=== PATIENT | female | born 1930 | race Caucasian/White ===

== ENCOUNTER → 2016-04-20 | Outpatient (CLI) | payer MEDICARE, BC ==
--- NOTE | 2016-04-21 09:12 | USB ---
Reason for exam: follow-up at short interval from prior study. History: Patient is postmenopausal and has history of breast cancer at age 46. US discontinued breast asp RT of the right breast, October 16, 2015. Mastectomy of the left breast, 1975. Physical Findings: Nurse did not find any significant physical abnormalities on exam. US Breast RT Right breast ultrasound including all four quadrants, the retroareolar region and axilla demonstrates dilated ducts at the post areolar position and a 5 x 4 x 9mm mixed, hypoechoic, vacular lesion at 8 o'clock, 5.9 cm from nipple, this was not seen previously. Biopsy is recommended. These results were verbally communicated with the patient and result sheet given to the patient on 04/20/16. ASSESSMENT: Suspicious, BI-RAD 4 RECOMMENDATION: Surgical consultation and ultrasound core biopsy of the right breast. Called with mammographic findings and has scheduled an appointment for the patient for 04/21/16 at 11:[address] Polanco. PRELIMINARY REPORT CALLED AND FAXED TO DR. POLANCO ON 04/21/16 AT 1000/TMP.
== END | disposition home or self-care (01) ==
LOC: RADUSWWP 14:28
PROVIDERS: ATTEND Family Medicine
DX: N63 Unspecified lump in breast (principal)

== ENCOUNTER → 2016-05-11 | Day surgery (SDC) | payer MEDICARE, BC ==
[~2016-05-11] MED LIST: ALPRAZolam 0.25 MG TAB ONE; LIDOCAINE 1% INJ 10MG/ML (20 ML MDV) ONE; SODIUM BICARB 4% 5 ML VIAL (0.48 MEQ/ML) ONE
--- NOTE | 2016-05-11 13:01 | USB ---
Ultrasound-guided breast cyst aspiration HISTORY: Abnormal breast ultrasound and mammogram Ultrasound used with sterile technique. Maximal barrier technique is utilized. The skin overlying the breast cyst in the infarct position of the right breast was localized and the overlying skin prepped and draped. Lidocaine used for local anesthesia. 25-gauge needle was advanced into the cystic area a nd aspiration was performed, no significant fluid was withdrawn, the cluster of cysts is no longer pr esent. IMPRESSION: Status post ultrasound-guided breast cyst aspiration. Precautionary follow up mammogram a nd right breast ultrasound suggested in 6 months. This procedure performed by the undersigned.
== END ==
LOC: RADUSWWP 11:06
PROVIDERS: ATTEND Surgery
DX: R92.8 Other abnormal and inconclusive findings on diagnostic imaging of breast (principal); N60.01 Solitary cyst of right breast; Z88.2 Allergy status to sulfonamides
CPT/HCPCS: 76942; 19000; J2001

== ENCOUNTER → 2017-03-08 | Outpatient (CLI) | payer MEDICARE, BC ==
[2017-03-08 12:49] LABS: Albumin 3.8 g/dL (3.5-5.0); Calcium 10.3 mg/dL (8.4-10.2); Potassium 4.2 mmol/L (3.5-5.1); Total Bilirubin 0.6 mg/dL (0.2-1.3); Total Protein 6.4 g/dL (6.3-8.2)
== END | disposition home or self-care (01) ==
LOC: LABWHC1 11:31
PROVIDERS: ATTEND Physician Assistant
DX: Z00.01 Encounter for general adult medical examination with abnormal findings (principal)
CPT/HCPCS: 36415; 80053

== ENCOUNTER → 2017-07-11 | Outpatient (CLI) | payer MEDICARE, BC ==
--- NOTE | 2017-07-11 14:11 | MM ---
Reason for exam: clinical finding. Last mammogram was performed 1 year and 9 months ago. History: Patient is postmenopausal and has history of breast cancer at age 46. US breast aspiration single RT of the right breast, May 11, 2016. US discontinued breast asp RT of the right breast, October 16, 2015. Mastectomy of the left breast, 1975. Physical Findings: Nurse Summary: 0.5cm nodule in the right breast at 6 o'clock (nurse dw). MG 3D Diag Mammo W/Cad RT CC and MLO view(s) were taken of the right breast. Prior study comparison: October 06, 2015, right breast MG 3d diag mammo w/cad RT. October 15, 2014, right breast MG diagnostic mammo RT w CAD. Finding: There is a 6 mm equal density (isodense), lobulated mass in the 8 o'clock lower outer quadrant, middle position of the right breast consistent with palpable region in breast on ultrasound. There is a chronic nodularity in the right breast. New finding since October 06, 2015 and October 15, 2014. These results were verbally communicated with the patient and result sheet given to the patient on 07/11/17. ASSESSMENT: Probably benign, BI-RAD 3 RECOMMENDATION: Follow-up diagnostic mammogram and ultrasound of the right breast in 6 months.
--- NOTE | 2017-07-11 14:13 | USB ---
Reason for exam: clinical finding. History: Patient is postmenopausal and has history of breast cancer at age 46. US breast aspiration single RT of the right breast, May 11, 2016. US discontinued breast asp RT of the right breast, October 16, 2015. Mastectomy of the left breast, 1975. US Breast RT Right complete breast ultrasound includes all four quadrants, the retroareolar region and axilla. Finding demonstrates a 1.1 x 0.5 x 0.8cm mixed duct ectasia at the nipple, a 0.5 x 0.2 x 0.3cm mixed lesion at 6 o'clock correlated with palpable region, may correlate with mammogram and a 0.5 x 0.3 x 0.6cm mixed lesion at 8 o'clock. These results were verbally communicated with the patient and result sheet given to the patient on 07/11/17. ASSESSMENT: Probably benign, BI-RAD 3 RECOMMENDATION: Follow-up diagnostic mammogram and ultrasound of the right breast in 6 months.
== END | disposition home or self-care (01) ==
LOC: RADMAMWWP 12:59
PROVIDERS: ATTEND Family Medicine
DX: N63.0 Unspecified lump in unspecified breast (principal)
CPT/HCPCS: 77065; 76641; G0279; 77061